=== PATIENT | female | born 1990 | race Two or more races ===

== ENCOUNTER 2023-09-29 16:35 | Inpatient (IN) | payer OTHER, SELFPAY ==
--- NOTE | ~2023-09-29 | CT_ITS ---
EXAMINATION: CT abdomen pelvis w con DATE: 09/29/2023 19:29 INDICATION: epigastric pain TECHNIQUE: Computed tomography (CT) of the abdomen and pelvis was performed with 100 mL Omnipaque-350 intravenous contrast. Automated exposure control and iterative reconstruction technique were employe d. The dose-length product was 273.81 mGy-cm. COMPARISON: None. FINDINGS: Lower thorax: Unremarkable Liver: Simple right lobe cyst. Subcentimeter left lobe hypodensity, likely cyst or hemangioma. Biliary/Gallbladder: Gallbladder is normal. No bile duct dilation. Pancreas: No mass or duct dilation. Spleen: Normal. Adrenals:No mass. Kidneys: Mild bilateral upper pole scarring. Subcentimeter left upper pole hypodensity, likely cyst. 12 mm right lower pole lesion of indeterminate density, with surrounding renal parenchymal hypoenhanc ement. No hydronephrosis. No obstructing calcification. GI tract: Mild distal esophageal and gastric wall edema. No small or large bowel dilation. The append ix is not confidently visualized Mesentery/Peritoneum: No ascites, mass, or free air. Retroperitoneum: No mass. Pelvis: Pelvic organs are within normal limits. 2.1 cm simple left ovarian cyst which requires no add itional evaluation. Soft Tissues: Soft tissues and body wall unremarkable. Bones: No acute osseous finding. IMPRESSION: Mild esophagitis/gastritis. 12 mm right lower pole renal lesion with surrounding hypoenhancement may reflect small/early renal ab scess or renal antibioma if there is a history of current or recent antibiotic treatment for pyonephr itis. Reviewed, dictated and finalized at location K. CTOR OF RESPIRATORY THERAPY IMPRESSION: Mild esophagitis/gastritis. 12 mm right lower pole renal lesion with surrounding hypoenhancement may reflec t small/early renal abscess or renal antibioma if there is a history of current or recent antibiotic treatment for pyonephritis.
--- NOTE | ~2023-09-29 | XR_ITS ---
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 RESULT: Lines, tubes, and devices: None. Lungs and pleura: Clear. Cardiomediastinal silhouette: Unremarkable. Other: No acute osseous or upper abdominal finding. IMPRESSION: No acute cardiopulmonary process. Reviewed, dictated and finalized at location K. KMAKER
--- NOTE | ~2023-09-29 | US_ITS ---
EXAMINATION: US renal BI DATE: 09/30/2023 16:50 INDICATION: Renal abscess. TECHNIQUE: Multiple ultrasound grayscale images of the kidneys were obtained. COMPARISON: CT abdomen pelvis 09/29/23 FINDINGS: The right kidney measures 10.0 x 5.1 x 5.3 cm. The left kidney measures 11.3 x 5.3 x 4.4 cm. The kidn eys demonstrate normal parenchymal echogenicity. There is no hydronephrosis. The bladder is normal. IMPRESSION: 1. Normal kidneys. No abscess identified. Reviewed, dictated and finalized at location A. SPROUT LABORER
[2023-09-29 16:54] VITALS: BP 122/86; PULSE 167; RESP 24; TEMP 38.6; O2SAT 99
--- NOTE | 2023-09-29 17:15 | ECG_ITS ---
Measurements Intervals [place] Rate: 158 P: 59 MO: 105 QRS: 80 QRSD: 65 T: 38 QT: 291 QTc: 473 Interpretive Statements SINUS TACHYCARDIA WITH SHORT MO INTERVAL NONSPECIFIC T-WAVE ABNORMALITY- ANTEROLAT/INF LEADS ABNORMAL ECG NO PREVIOUS ECG AVAILABLE FOR COMPARISON Electronically Signed On 09-29-2023 19:27:53 WARE TESTER by Néstor Barnard D.O.
--- NOTE | 2023-09-29 17:49 | ED.GENADULT ---
HPI - General Adult General Chief complaint: Nausea/Vomiting/Diarrhea <DIMITRI Aguero Last Filed: 09/30/23 03:36> Stated complaint: nausea <DIMITRI Aguero Last Filed: 09/30/23 03:36> Time Seen by Provider: 09/29/23 17:16 <DIMITRI Aguero Last Filed: 09/30/23 03:36> Source: patient and other ( Friend, development planner) <DIMITRI Aguero Last Filed: 09/30/23 03:36> Mode of arrival: ambulatory <DIMITRI Aguero Last Filed: 09/30/23 03:36> Limitations: language barrier <DIMITRI Aguero Last Filed: 09/30/23 03:36> History of Present Illness HPI narrative: this is a 33-year-old female who presents to the ED for chief complaint of N/ V/ D beginning yesterday. Reports that she has some generalized abdominal pain, seems to be more focal in the epigastrium. Reports multiple episodes of vomiting and diarrhea today. Reports fevers and chills. she also reports that as the vomiting and diarrhea got worse today she started to feel more dizzy. Reports this has happened in the past but has not been this severe. Denies cough, congestion, Sore throat, urinary symptoms, vaginal symptoms, headache, numbness, weakness, vision change or speech change. <DIMITRI Aguero Last Filed: 09/30/23 03:36> Related Data Home medications: Home Medications Medication Instructions Recorded Confirmed naproxen 250 mg tablet 750 mg PO BID PRN Pain 09/30/23 09/30/23 <DIMITRI Aguero Last Filed: 09/30/23 03:36> Allergies/adverse reactions: Allergies Allergy/AdvReac Type Severity Reaction Status Date / Time No Known Allergies Allergy Verified 09/29/23 18:05 <DIMITRI Aguero Last Filed: 09/30/23 03:36> Review of Systems Review of Systems: All systems as dictated in HPI <DIMITRI Aguero Last Filed: 09/30/23 03:36> [facility] Social History Social History: Social History Smoking status: Never smoker Second hand tobacco smoke exposure: No Alcohol intake: never Substance use: never Substance use type: does not use Do You Feel Safe in your Home?: No Lack of Transportation: No Lack of Food: Never True Current Housing: I Have Housing Concerned About Future Housing: No Difficulty Paying Gas/Electric Bills: No Difficulty Paying for Meds: No Currently Unemployed: No Education: Bachelor's Degree Difficulty w/ Childcare or Family Care: No Spiritual care concerns: No <Tuan Comer PA-C - Last Filed: 09/30/23 03:36> Exam Narrative: GENERAL: Appears dry on exam. resting comfortably HEAD: Normocephalic, atraumatic. EYES: PERRLA and EOMI. ENT: Nares clear, no rhinorrhea or epistaxis. Mucous membranes moist. Oropharynx without tonsillar hypertrophy exudate or other lesions. NECK: Supple. No adenopathy or masses. CHEST: No respiratory distress. Clear to auscultation. No wheezes rales or rhonchi HEART: tachycardic in the 130s. Regular rhythm.. No murmur heard. Normal peripheral pulses. ABDOMEN: Mild tenderness to the epigastrium. Soft, otherwise nontender, nondistended, normal active bowel sounds. MSK: Normal range of motion. No edema. SKIN: Warm, dry, no rash. NEURO: Alert and oriented x3. No focal deficits. PSYCH: Normal mood and affect. <Tuan Comer PA-C - Last Filed: 09/30/23 03:36> Course Course Emergency Course: CT scan showing possible early renal abscess on the right. She does not have any flank tenderness. Remains slightly tachycardic and febrile on fluids. <Tuan Comer PA-C - Last Filed: 09/30/23 03:36> SCALEMAN/PA Physician Supervision For this patient encounter, I reviewed the SCALEMAN or PA documentation, treatment plan, and medical decision making and/or I had [id number] time with this patient. I performed all aspects of the MDM as documented. <Elizabeth Srivastava MD - Last Filed: 10/04/23 02:00> Vital Signs Vital signs: Vital Signs Temperature
[2023-09-29 17:54] LABS: Basophils Percent Auto 0.2 % (0.2-1.2); Eosinophils Absolute Auto 0.1 K/mm3 (0-0.3); Hematocrit 36.9 % (37.0-47.0); Hemoglobin 12.1 g/dL (12.0-15.0); Immature Granulocyte Absolute 0.02 K/mm3 (0.00-0.031); Immature Granulocyte Percent A 0.4 % (0-0.5); Lymphocytes Absolute Auto 0.25 K/mm3 (0.9-3.2); Mean Corpuscular HGB Conc 32.8 g/dl (32-36); Mean Corpuscular Hemoglobin 30.4 pg (26-34); Mean Corpuscular Volume 92.7 fl (80-100); Mean Platelet Volume 9.9 fl (7.4-10.4); Monocytes Absolute Auto 0.1 K/mm3 (0.1-0.6); Neutrophils Absolute Auto 4.6 K/mm3 (1.3-6.7); Neutrophils Percent Auto 91.4 % (45.5-73.1); Platelet Count Result 215 k/mm3 (150-375); Red Blood Count 3.98 M/mm3 (4.2-5.4); Red Cell Distribution Width 13.3 % (11.5-14.5)
[2023-09-29] MEDS: Please add drug allergy info to patient profile. 1 EACH XX (18:07)
[2023-09-29] MEDS: ONDANSETRON INJ 4 MG/2 ML VIAL IV PUSH (18:07)
[2023-09-29] MEDS: SODIUM CHLORIDE 0.9% IV 1,000 ML 999 ML IV CONT ×2 (18:07→20:02)
[2023-09-29] MEDS: MORPHINE SULFATE (*CRX) 4 MG/ML INJ IV PUSH (18:07)
[2023-09-29 18:18] LABS: Alanine Aminotransferase 17 U/L (6-35); Albumin Level 4.2 g/dL (3.5-5.1); Alkaline Phosphatase 110 U/L (38-126); Anion Gap 10 mmol/L (8-16); Aspartate Amino Transferase 25 U/L (14-36); Bilirubin,Total 1.3 mg/dL (0.2-1.3); Blood Urea Nitrogen 21 mg/dL (7-17); Calcium 9.2 mg/dL (8.4-10.2); Carbon Dioxide 19 mmol/L (22-30); Chloride 111 mmol/L (98-107); Estimated CRCL calculation 81 ml/min; Estimated Glomerular Filt Rate > 60; Glucose 105 mg/dL (65-110); Sodium 140 mmol/L (137-145)
[2023-09-29 18:26] LABS: Lipase 68 U/L (23-300)
[2023-09-29 18:30] LABS: Influenza A QL RT-PCR Negative (Negative); Influenza B QL RT-PCR Negative (Negative); RSV RNA, RT-PCR Negative (Negative); SARS-CoV-2 RNA PCR Negative (Negative)
[2023-09-29 18:32] LABS: CRP 14.4 mg/dL (<1.0)
[2023-09-29 18:39] VITALS: BP 110/71; PULSE 120; RESP 16; O2SAT 99
[2023-09-29] MEDS: diphenhydrAMINE HCl INJ 50 MG/ML VIAL 25 MG IV PUSH (18:45)
[2023-09-29 19:07] LABS: Appearance Urine Clear (Clear); Bacteria Urine Rare /hpf; Bilirubin Urine Negative (Negative); Blood Urine 3+ (Negative); Color Urine Yellow (Yellow); Glucose Urine UA Negative (Negative); Ketones Urine 2+ mg/dL (Negative); Leukocyte Esterase Ur 1+ LEU/UL (Negative); Need Manual Microscopic Reviewed; Nitrate Urine Negative (Negative); Non Pathogenic Casts 0-2; Protein Urine 2+ mg/dL (Negative); RBC Urine 0-2 /hpf (0-2); Specific Grav Ur 1.022 (1.001-1.035); Squamous Epithelial Cell Urine Few /hpf (Few); WBC Urine 0-5 /hpf
[2023-09-29 19:29] VITALS: BP 114/76; PULSE 117; RESP 13; O2SAT 100
[2023-09-29] MEDS: KETOROLAC 15 MG/ML VIAL (*BKC) IV PUSH (20:02)
[2023-09-29 20:05] LABS: Add Urine Microscopic? YES
--- NOTE | 2023-09-29 20:32 | PC.NURSE ---
Pt able to ambulate with steady gait to restroom.
[2023-09-29 20:40] VITALS: BP 112/76; PULSE 106; RESP 15; TEMP 37.5; O2SAT 99
--- NOTE | 2023-09-29 21:21 | PM.IMHP ---
H&P: HPI History of Present Illness Date/Time: 09/29/23 21:21 Chief Complaint: chills Narrative: 33-year-old female with no significant past medical history presents to the emergency room due to 3-4 days of chills, fevers, nausea, vomiting poor appetite EXAMINATION:? XR chest 1V portable Exam Date/Time:? 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 Comparison:? None. RESULT: Lines, tubes, and devices:? None. Lungs and pleura:? Clear. Cardiomediastinal silhouette:? Unremarkable. Other:? No acute osseous or upper abdominal finding. ? IMPRESSION: No acute cardiopulmonary process. EXAMINATION: CT abdomen pelvis w con DATE: 09/29/2023 19:29 INDICATION: epigastric pain TECHNIQUE: Computed tomography (CT) of the abdomen and pelvis was performed with 100 mL Omnipaque-350 intravenous contrast. Automated exposure control and iterative reconstruction technique were employed. The dose-length product was 273.81 mGy-cm. COMPARISON: None. FINDINGS: Lower thorax: Unremarkable Liver: Simple right lobe cyst. Subcentimeter left lobe hypodensity, likely cyst or hemangioma.? Biliary/Gallbladder: Gallbladder is normal. No bile duct dilation. Pancreas: No mass or duct dilation. Spleen: Normal. Adrenals:No mass. Kidneys: Mild bilateral upper pole scarring. Subcentimeter left upper pole hypodensity, likely cyst. 12 mm right lower pole lesion of indeterminate density, with surrounding renal parenchymal hypoenhancement. No hydronephrosis. No obstructing calcification. GI tract: Mild distal esophageal and gastric wall edema. No small or large bowel dilation. The appendix is not confidently visualized Mesentery/Peritoneum: No ascites, mass, or free air. Retroperitoneum: No mass. Pelvis: Pelvic organs are within normal limits. 2.1 cm simple left ovarian cyst which requires no additional evaluation. Soft Tissues: Soft tissues and body wall unremarkable. Bones:? No acute osseous finding. IMPRESSION: Mild esophagitis/gastritis. 12 mm right lower pole renal lesion with surrounding hypoenhancement may reflect small/early renal abscess or renal antibioma if there is a history of current or recent antibiotic treatment for pyonephritis. Review of Systems Review of Systems: chills, n/v Constitutional: Constitutional: Reports chills, Reports fever(s) and Reports poor appetite PMFSH Social History Social History Smoking status: Never smoker Second hand tobacco smoke exposure: No Alcohol intake: never Substance use: never Substance use type: does not use Do You Feel Safe in your Home?: No Lack of Transportation: No Lack of Food: Never True Current Housing: I Have Housing Concerned About Future Housing: No Difficulty Paying Gas/Electric Bills: No Difficulty Paying for Meds: No Currently Unemployed: No Education: Bachelor's Degree Difficulty w/ Childcare or Family Care: No Spiritual care concerns: No Meds Home Medications and Allergies Home Medications Medication Instructions Recorded Confirmed Type naproxen 250 mg tablet 750 mg PO BID PRN Pain 09/30/23 09/30/23 History Allergies Allergy/AdvReac Type Severity Reaction Status Date / Time No Known Allergies Allergy Verified 09/29/23 18:05 Vital Signs Vital Signs - 24 hr 09/29/23 16:54 09/29/23 18:39 09/29/23 19:29 Temperature 101.4 F H Pulse Rate 167 H 120 H 117 H Respiratory Rate 24 H 16 13 Blood Pressure 122/86 110/71 114/76 Pulse Oximetry 99 99 100 Oxygen Delivery Room Air 09/29/23 20:40 09/29/23 20:40 Temperature 99.5 F Pulse Rate 106 H Respiratory Rate 15 Blood Pressure 112/76 Pulse Oximetry 99 Oxygen Delivery Exam Const: General: comfortable, no acute distress, well developed, alert, awake and average body habitus Nutritional Appearance: average body habitus Orientation/consciousness: patient oriented x3 HENMT: Head: normal to inspection, normocephalic and atraumatic Ears: heari
[2023-09-29 21:55] VITALS: BP 109/77; PULSE 101; RESP 14; O2SAT 99
[2023-09-29] MEDS: SODIUM CHLORIDE 0.9% IV 1,000 ML 125 ML IV CONT (23:32)
[2023-09-29] MEDS: MEROPENEM 1 GM/NS 100 ML 1 GM/100 ML BAG IVPB (23:32)
[2023-09-29 23:33] VITALS: BP 104/74; PULSE 103; RESP 14; O2SAT 100
[2023-09-30] VITALS (9 sets, daily range): BP systolic 100–123; BP diastolic 58–88; PULSE 80–96; RESP 14–20; TEMP 36.5–37.3; O2SAT 98–100; BMI 24.4
--- NOTE | 2023-09-30 00:40 | ADMGEN ---
This patient, Danielle Batres, was admitted to [facility] Surg Room 302-01. Patient/family oriented to hospital policies and general routines including ID bracelet, bed and alarms, visiting hours, pain management, procedures, bathroom and other care routines, personal items, smoking policy, room service/diet, and visiting hours. Information on how to activate the Rapid Response Team has been discussed. Patient/Family are encouraged to report perceived risks to care and to ask questions if they do not understand what they are told or what they should do.
[2023-09-30] MEDS: MEROPENEM 1 GM/NS 100 ML 1 GM/100 ML BAG IVPB ×2 (05:28→14:52)
[2023-09-30] MEDS: SODIUM CHLORIDE 0.9% IV 1,000 ML 125 ML IV CONT ×2 (08:50→20:22)
[2023-09-30] MEDS: MORPHINE SULFATE (*CRX) 4 MG/ML INJ IV PUSH (08:50)
--- NOTE | 2023-09-30 10:56 | PM.IMPN ---
Progress Note: A&P Assessment and Plan (1) Kidney abscess: Code(s): N15.1 - Renal and perinephric abscess Status: Acute Assessment and Plan: US of kidney ordered. Continue to provide IV Abx of Meropenem pending results of blood and urine cultures. Trend labs and VS. PRN pain meds No longer meeting Sepsis/SIRS criteria. Time Spent With Patient Time with patient: 25 - 35 minutes Subjective Date/time seen: 09/30/23 10:05 Interval history: This pt was examined at the bedside with the help of a senior financial consultant after being admitted to the hospital with dx of sepsis and abscess on right kidney. Blood cultures are currently pending. Urine culture is ordered but not yet collected. Pt has had interval improvement in her pain and reports feeling better today with exception of continued headache. She has no other complaints at this time. Review of Systems Review of Systems: All systems reviewed & are unremarkable except as noted in HPI and below Exam Narrative: Constitutional: Alert and oriented x4, female pt sitting up in bed at this time in no acute distress. HEENT: Normocephalic and atraumatic. Eyes: PERRLA Neck: Supple with FROM actively in all directions. Respiratory: CTAB in all beard. Cardio:RRR, S1 and S2 present. No S3, S4, m,r,g,h or displacement of PMI. GI: Soft, NT, BS present x4 quads, There is mild right CVA tenderness Skin: CLear, without lesion, rash or abnormality. Good turgor. Neuro: A&Ox4, Non-focal Extremity: MAEW and fully without deficit. Psych: Normal affect and cooperative. Objective Data Vital Signs Vital Signs: Vital Signs - 24 hr 09/29/23 16:54 09/29/23 18:39 09/29/23 19:29 Temperature 101.4 F H Pulse Rate 167 H 120 H 117 H Respiratory Rate 24 H 16 13 Blood Pressure 122/86 110/71 114/76 Pulse Oximetry 99 99 100 Oxygen Delivery Room Air 09/29/23 20:40 09/29/23 20:40 09/29/23 21:55 Temperature 99.5 F Pulse Rate 106 H 101 H Respiratory Rate 15 14 Blood Pressure 112/76 109/77 Pulse Oximetry 99 99 Oxygen Delivery 09/29/23 23:33 09/30/23 00:12 09/30/23 06:00 Temperature 99.1 F Pulse Rate 103 H 94 96 Respiratory Rate 14 15 14 Blood Pressure 104/74 101/69 106/70 Pulse Oximetry 100 98 99 Oxygen Delivery 09/30/23 04:00 Temperature Pulse Rate 85 Respiratory Rate Blood Pressure Pulse Oximetry Oxygen Delivery Intake/Output Intake/Output: Intake & Output 09/27/23 09/28/23 09/29/23 09/30/23 23:59 23:59 23:59 23:59 Intake Total 2049 1069 Balance 2049 107 Meds/Results Medications: Active Medications Generic Name Dose Route Start Last Admin Trade Name Freq PRN Reason Stop Dose Admin Acetaminophen 1,000 mg 09/30/23 09:40 Acetaminophen 500 Mg Tablet PO Q6H PRN Mild Pain (1-3) or Fever Sodium Chloride 1,000 mls @ 125 mls/hr 09/29/23 21:35 09/30/23 08:50 Normal Saline Iv IV CONT 125 mls/hr .Q8H JESSICA Administration Meropenem 1 gm in 100 mls @ 200 mls/hr 09/29/23 22:00 09/30/23 05:28 IVPB 200 mls/hr Q8HR JESSICA Administration Morphine Sulfate 4 mg 09/29/23 21:27 09/30/23 08:50 Morphine Sulfate (*Crx) 4 Mg/Ml Inj IV PUSH 4 mg Q4H PRN Administration Pain Rated 7-10 Ondansetron HCl 4 mg 09/29/23 21:27 Ondansetron Inj 4 Mg/2 Ml Vial IV PUSH Q4H PRN Nausea Radiology Results: ITS Impressions Chest X-Ray 09/29/23 19:10 IMPRESSION: No acute cardiopulmonary process. Abdomen/Pelvis CT 09/29/23 19:46 IMPRESSION: Mild esophagitis/gastritis. 12 mm right lower pole renal lesion with surrounding hypoenhancement may reflect small/early renal abscess or renal antibioma if there is a history of current or recent antibiotic treatment for pyonephritis. Labs Labs: Laboratory Results - last 24 hr 09/29/23 09/29/23 09/29/23 17:36 18:08 18:47 WBC 5.0 RBC 3.98 L Hgb 12.1 Hct 36.9 L MCV 92.7 MCH 30.4
[2023-09-30] MEDS: metroNIDAZOLE 500 MG TABLET PO (20:22)
[2023-09-30] MEDS: cefTRIAXone 2 GM/NS 100 ML 2 GM/100 ML BAG IVPB (20:23)
[2023-10-01] VITALS (9 sets, daily range): BP systolic 108–126; BP diastolic 73–79; PULSE 72–86; RESP 16–18; TEMP 36.6–36.8; O2SAT 100
[2023-10-01] MEDS: SODIUM CHLORIDE 0.9% IV 1,000 ML 125 ML IV CONT ×3 (05:50→20:55)
[2023-10-01] MEDS: metroNIDAZOLE 500 MG TABLET PO ×3 (05:50→20:56)
--- NOTE | 2023-10-01 08:04 | PC.NURSE ---
On 09/30/23, the SECOND HAND PAPER MACHINE, Jennifer Marsh, provided care and completed [facility] documentation on this patient. I have reviewed the SECOND HAND PAPER MACHINE's documentation and agree with the findings.
[2023-10-01] MEDS: ACETAMINOPHEN 500 MG TABLET 1000 MG PO ×2 (09:30→15:03)
[2023-10-01] MEDS: ONDANSETRON INJ 4 MG/2 ML VIAL IV PUSH (09:30)
[2023-10-01 09:31] LABS: Anion Gap 6 mmol/L (8-16); Blood Urea Nitrogen 5 mg/dL (7-17); Calcium 8.7 mg/dL (8.4-10.2); Carbon Dioxide 22 mmol/L (22-30); Chloride 110 mmol/L (98-107); Estimated CRCL calculation 97 ml/min; Estimated Glomerular Filt Rate > 60; Glucose 92 mg/dL (65-110); Sodium 138 mmol/L (137-145)
[2023-10-01 09:52] LABS: Basophils Percent Auto 0.4 % (0.2-1.2); Eosinophils Absolute Auto 0.2 K/mm3 (0-0.3); Eosinophils Percent Auto 4.4 % (0-4.4); Hematocrit 35.9 % (37.0-47.0); Hemoglobin 11.8 g/dL (12.0-15.0); Immature Granulocyte Absolute 0.01 K/mm3 (0.00-0.031); Immature Granulocyte Percent A 0.2 % (0-0.5); Lymphocytes Absolute Auto 0.98 K/mm3 (0.9-3.2); Lymphocytes Percent Auto 19.8 % (18.3-44.2); Mean Corpuscular HGB Conc 32.9 g/dl (32-36); Mean Corpuscular Hemoglobin 30.5 pg (26-34); Mean Corpuscular Volume 92.8 fl (80-100); Monocytes Absolute Auto 0.5 K/mm3 (0.1-0.6); Monocytes Percent Auto 9.5 % (2.6-8.5); Neutrophils Absolute Auto 3.3 K/mm3 (1.3-6.7); Neutrophils Percent Auto 65.7 % (45.5-73.1); Platelet Count Result 231 k/mm3 (150-375); Red Blood Count 3.87 M/mm3 (4.2-5.4); Red Cell Distribution Width 13.2 % (11.5-14.5)
[2023-10-01] MEDS: LOPERAMIDE HCL 2 MG CAPSULE PO ×2 (14:24→20:56)
--- NOTE | 2023-10-01 14:26 | PM.IMPN ---
Progress Note: A&P Assessment and Plan (1) Kidney abscess: Code(s): N15.1 - Renal and perinephric abscess Status: Acute Assessment and Plan: US of kidney normal kidneys. No abscess identified. Continue Rocephin and Flagyl urine cultures pending BC showing gram negative bacilli in prelim growth Trend labs and VS. PRN pain meds PRN immodium Subjective Date/time seen: 10/01/23 14:26 Interval history: Patient in no acute distress on exam, denies CVA tenderness. Only complaint is diarrhea from the IV AB. Discussed plan of care with puncher assistance. Will plan for d/c when UA results and BC finalizes for AB therapy. Renal US showed no kidney abscess. Review of Systems Review of Systems: All systems reviewed & are unremarkable except as noted in HPI and below Exam Narrative: Constitutional: Alert and oriented x4, female pt sitting up in bed at this time in no acute distress. HEENT: Normocephalic and atraumatic. Eyes: PERRLA, EOMI Neck: Supple Respiratory: Lungs clear to ausculation Cardio: RRR GI: Soft, non-tender to palpation, BS present. Denies CVA tenderness Skin: Clear, without lesion, rash or abnormality. Neuro: A&Ox4, no deficits. Extremity: ROM WNL, no edema. Psych: Normal affect and cooperative. Objective Data Vital Signs Vital Signs: Vital Signs - 24 hr 09/30/23 16:00 09/30/23 21:16 09/30/23 20:00 Temperature 97.9 F Pulse Rate 90 88 80 Respiratory Rate 18 16 Blood Pressure 123/88 Pulse Oximetry 100 98 Oxygen Delivery Room Air 09/30/23 20:00 10/01/23 00:00 10/01/23 04:00 Temperature Pulse Rate 86 86 78 Respiratory Rate Blood Pressure Pulse Oximetry Oxygen Delivery 10/01/23 06:00 10/01/23 09:00 Temperature 98.1 F Pulse Rate 83 Respiratory Rate 16 Blood Pressure 126/79 Pulse Oximetry 100 Oxygen Delivery Room Air Intake/Output Intake/Output: Intake & Output 09/28/23 09/29/23 09/30/23 10/01/23 23:59 23:59 23:59 23:59 Intake Total 2049 3060 1240 Balance 2049 3060 1240 Meds/Results Medications: Active Medications Generic Name Dose Route Start Last Admin Trade Name Freq PRN Reason Stop Dose Admin Acetaminophen 1,000 mg 09/30/23 09:40 Acetaminophen 500 Mg Tablet PO Q6H PRN Mild Pain (1-3) or Fever Sodium Chloride 1,000 mls @ 125 mls/hr 09/29/23 21:35 10/01/23 05:50 Normal Saline Iv IV CONT 125 mls/hr .Q8H JESSICA Administration Ceftriaxone Sodium 2 gm in 100 mls @ 200 mls/hr 09/30/23 21:00 09/30/23 20:23 Rocephin 2 Gm/Ns 100 Ml IVPB 200 mls/hr Q24H JESSICA Administration Loperamide HCl 2 mg 10/01/23 14:06 10/01/23 14:24 Loperamide Hcl 2 Mg Capsule PO 2 mg PRN PRN Administration Diarrhea Metronidazole 500 mg 09/30/23 22:00 10/01/23 14:24 Metronidazole 500 Mg Tablet PO 500 mg Q8HR JESSICA Administration Morphine Sulfate 4 mg 09/29/23 21:27 09/30/23 08:50 Morphine Sulfate (*Crx) 4 Mg/Ml Inj IV PUSH 4 mg Q4H PRN Administration Pain Rated 7-10 Ondansetron HCl 4 mg 09/29/23 21:27 Ondansetron Inj 4 Mg/2 Ml Vial IV PUSH Q4H PRN Nausea Radiology Results: ITS Impressions Chest X-Ray 09/29/23 19:10 IMPRESSION: No acute cardiopulmonary process. Abdomen/Pelvis CT 09/29/23 19:46 IMPRESSION: Mild esophagitis/gastritis. 12 mm right lower pole renal lesion with surrounding hypoenhancement may reflect small/early renal abscess or renal antibioma if there is a history of current or recent antibiotic treatment for pyonephritis. Renal Ultrasound 09/30/23 17:00 IMPRESSION: 1. Normal kidneys. No abscess identified. Labs Labs: Laboratory Results - last 24 hr 10/01/23 08:39 WBC 5.0 RBC 3.87 L Hgb 11.8 L Hct 35.9 L MCV 92.8 MCH 30.5 MCHC 32.9 RDW 13.2 Plt Count 231 MPV 10.0 Immature Gran % (Auto) 0.2 Neut % (Auto) 65.7 Lymph % (Auto) 19.8 Coffee % (Auto)
--- NOTE | 2023-10-01 19:21 | PC.NURSE ---
On 10/01/23, the TIE KNITTER HELPER, Jennifer Marsh, provided care and completed [email or web address] documentation on this patient. I have reviewed the TIE KNITTER HELPER's documentation and agree with the findings.
[2023-10-01] MEDS: cefTRIAXone 2 GM/NS 100 ML 2 GM/100 ML BAG IVPB (20:55)
[2023-10-02] VITALS (9 sets, daily range): BP systolic 112–126; BP diastolic 81–92; PULSE 69–93; RESP 16–18; TEMP 36.6–36.7; O2SAT 100
[2023-10-02] MEDS: metroNIDAZOLE 500 MG TABLET PO ×3 (05:23→20:35)
[2023-10-02] MEDS: LOPERAMIDE HCL 2 MG CAPSULE PO ×3 (05:23→20:35)
[2023-10-02 07:16] LABS: Basophils Percent Auto 0.5 % (0.2-1.2); Eosinophils Absolute Auto 0.3 K/mm3 (0-0.3); Eosinophils Percent Auto 5.3 % (0-4.4); Hematocrit 35.5 % (37.0-47.0); Hemoglobin 11.7 g/dL (12.0-15.0); Immature Granulocyte Absolute 0.02 K/mm3 (0.00-0.031); Immature Granulocyte Percent A 0.3 % (0-0.5); Lymphocytes Absolute Auto 1.52 K/mm3 (0.9-3.2); Lymphocytes Percent Auto 25.8 % (18.3-44.2); Mean Corpuscular Hemoglobin 30.6 pg (26-34); Mean Corpuscular Volume 92.9 fl (80-100); Monocytes Absolute Auto 0.5 K/mm3 (0.1-0.6); Monocytes Percent Auto 8.5 % (2.6-8.5); Neutrophils Absolute Auto 3.5 K/mm3 (1.3-6.7); Neutrophils Percent Auto 59.6 % (45.5-73.1); Platelet Count Result 247 k/mm3 (150-375); Red Blood Count 3.82 M/mm3 (4.2-5.4); Red Cell Distribution Width 13.2 % (11.5-14.5); White Blood Count 5.9 K/mm3 (4.5-10.0)
[2023-10-02 07:36] LABS: Anion Gap 9 mmol/L (8-16); Blood Urea Nitrogen 7 mg/dL (7-17); Calcium 8.7 mg/dL (8.4-10.2); Carbon Dioxide 21 mmol/L (22-30); Chloride 109 mmol/L (98-107); Estimated CRCL calculation 84 ml/min; Estimated Glomerular Filt Rate > 60; Glucose 111 mg/dL (65-110); Potassium 3.8 mmol/L (3.4-5.0); Sodium 139 mmol/L (137-145)
[2023-10-02] MEDS: SODIUM CHLORIDE 0.9% IV 1,000 ML 125 ML IV CONT (09:41)
--- NOTE | 2023-10-02 15:41 | PM.IMPN ---
Progress Note: A&P Assessment and Plan (1) Kidney abscess: Code(s): N15.1 - Renal and perinephric abscess Status: Acute Assessment and Plan: US of kidney normal kidneys. No abscess identified. Continue Rocephin and Flagyl urine cultures pending BC showing gram negative bacilli in prelim growth and E. coli. Trend labs and VS. PRN pain meds PRN immodium Subjective Date/time seen: 10/02/23 15:41 Interval history: Patient in no acute distress on exam, denies CVA tenderness. Diarrhea has improved, she is eating an drinking well. D/C fluids and tele. Discussed plan of care with bariatric surgeon assistance. Will plan for d/c when UA results and BC finalizes for AB therapy. Review of Systems Review of Systems: All systems reviewed & are unremarkable except as noted in HPI and below Exam Narrative: Constitutional: Alert and oriented x4, female pt sitting up in bed at this time in no acute distress. HEENT: Normocephalic and atraumatic. Eyes: PERRLA, EOMI Neck: Supple Respiratory: Lungs clear to ausculation Cardio: RRR GI: Soft, non-tender to palpation, BS present. Denies CVA tenderness Skin: Clear, without lesion, rash or abnormality. Neuro: A&Ox4, no deficits. Extremity: ROM WNL, no edema. Psych: Normal affect and cooperative. Objective Data Vital Signs Vital Signs: Vital Signs - 24 hr 10/01/23 16:00 10/01/23 21:51 10/01/23 20:00 Temperature 98.2 F Pulse Rate 76 84 84 Respiratory Rate 16 16 Blood Pressure 108/79 Pulse Oximetry 100 100 Oxygen Delivery Room Air 10/01/23 20:00 10/02/23 00:00 10/02/23 04:00 Temperature Pulse Rate 76 69 76 Respiratory Rate Blood Pressure Pulse Oximetry Oxygen Delivery 10/02/23 06:00 10/02/23 08:00 10/02/23 12:00 Temperature 97.9 F Pulse Rate 88 80 84 Respiratory Rate 16 Blood Pressure 126/92 H Pulse Oximetry 100 Oxygen Delivery Intake/Output Intake/Output: Intake & Output 09/29/23 09/30/23 10/01/23 10/02/23 23:59 23:59 23:59 23:59 Intake Total 2049 3160 3804 1100 Balance 2050 3160 3804 1100 Meds/Results Medications: Active Medications Generic Name Dose Route Start Last Admin Trade Name Freq PRN Reason Stop Dose Admin Acetaminophen 1,000 mg 09/30/23 09:40 10/01/23 15:03 Acetaminophen 500 Mg Tablet PO 1,000 mg Q6H PRN Administration Mild Pain (1-3) or Fever Sodium Chloride 1,000 mls @ 125 mls/hr 09/29/23 21:35 10/02/23 09:41 Normal Saline Iv IV CONT 125 mls/hr .Q8H JESSICA Administration Ceftriaxone Sodium 2 gm in 100 mls @ 200 mls/hr 09/30/23 21:00 10/01/23 20:55 Rocephin 2 Gm/Ns 100 Ml IVPB 200 mls/hr Q24H JESSICA Administration Loperamide HCl 2 mg 10/01/23 14:06 10/02/23 13:45 Loperamide Hcl 2 Mg Capsule PO 2 mg PRN PRN Administration Diarrhea Metronidazole 500 mg 09/30/23 22:00 10/02/23 13:45 Metronidazole 500 Mg Tablet PO 500 mg Q8HR JESSICA Administration Morphine Sulfate 4 mg 09/29/23 21:27 09/30/23 08:50 Morphine Sulfate (*Crx) 4 Mg/Ml Inj IV PUSH 4 mg Q4H PRN Administration Pain Rated 7-10 Ondansetron HCl 4 mg 09/29/23 21:27 10/01/23 09:30 Ondansetron Inj 4 Mg/2 Ml Vial IV PUSH 4 mg Q4H PRN Administration Nausea Radiology Results: ITS Impressions Chest X-Ray 09/29/23 19:10 IMPRESSION: No acute cardiopulmonary process. Abdomen/Pelvis CT 09/29/23 19:46 IMPRESSION: Mild esophagitis/gastritis. 12 mm right lower pole renal lesion with surrounding hypoenhancement may reflect small/early renal abscess or renal antibioma if there is a history of current or recent antibiotic treatment for pyonephritis. Renal Ultrasound 09/30/23 17:00 IMPRESSION: 1. Normal kidneys. No abscess identified. Labs Labs: Laboratory Results - last 24 hr 10/02/23 06:06 WBC 5.9 RBC 3.82 L Hgb 11.7 L Hct 35.5 L MCV 92.9 MCH 30.6 MCHC 33.0 RDW 13.2
[2023-10-02] MEDS: cefTRIAXone 2 GM/NS 100 ML 2 GM/100 ML BAG IVPB (20:36)
[2023-10-03] VITALS: PULSE 95
[2023-10-03 04:00] VITALS: PULSE 82
[2023-10-03] MEDS: metroNIDAZOLE 500 MG TABLET PO (05:48)
[2023-10-03] MEDS: LOPERAMIDE HCL 2 MG CAPSULE PO (05:48)
[2023-10-03 06:00] VITALS: BP 109/78; PULSE 82; RESP 14; TEMP 36.6; O2SAT 100
[2023-10-03 08:00] VITALS: PULSE 82
[2023-10-03 10:51] LABS: Hematocrit 37.3 % (37.0-47.0); Hemoglobin 12.4 g/dL (12.0-15.0); Mean Corpuscular HGB Conc 33.2 g/dl (32-36); Mean Corpuscular Hemoglobin 30.2 pg (26-34); Mean Platelet Volume 10.1 fl (7.4-10.4); Platelet Count Result 279 k/mm3 (150-375); Red Cell Distribution Width 13.2 % (11.5-14.5); White Blood Count 6.2 K/mm3 (4.5-10.0)
[2023-10-03 10:58] LABS: Anion Gap 10 mmol/L (8-16); Blood Urea Nitrogen 8 mg/dL (7-17); Calcium 9.3 mg/dL (8.4-10.2); Carbon Dioxide 22 mmol/L (22-30); Chloride 108 mmol/L (98-107); Estimated CRCL calculation 84 ml/min; Estimated Glomerular Filt Rate > 60; Glucose 98 mg/dL (65-110); Potassium 3.9 mmol/L (3.4-5.0); Sodium 140 mmol/L (137-145)
--- NOTE | 2023-10-03 11:03 | PC.NURSE ---
patient d/c home self care. taking home in private car. IV out. all belongings with patient. [employer] was used in d/c instructions. denies any questions.
--- NOTE | 2023-10-03 11:24 | PM.DS ---
DS: Admitting Diagnosis Discharge Date 10/03/23 Admitting Diagnosis chills, N/V DS: Discharge Diagnosis Discharge Diagnosis (1) Kidney abscess: Code(s): N15.1 - Renal and perinephric abscess Status: Ruled-out Assessment and Plan: US of kidney normal kidneys. No abscess identified. urine cultures negative BC showing gram negative bacilli in prelim growth and E. coli. (2) Bacteremia: Code(s): R78.81 - Bacteremia Status: Acute Assessment and Plan: urine cultures negative, possible pyelonephritis source BC positive for E. coli. D/C on Augmentin PO Q8 to finish 7 day course DS: Summary Hospital Course Hospital Course: Patient is a 33-year-old female with no PMH admitted for 3-4 days of chills, fevers, nausea, vomiting/ poor appetite. CXR showed no acute process. CTA showed Mild esophagitis/gastritis. 12 mm right lower pole renal lesion with surrounding hypoenhancement may reflect small/early renal abscess or renal antibioma if there is a history of current or recent antibiotic treatment for pyonephritis. Renal US showed no abscess. UA culture was negative. BC positive for E.coli, likely secondary to possible pyelonephritis resolving from AB treatment if received previously. Labs otherwise remained stable, no WBC elevation or JUAN JOSE present. Patient in no acute distress on exam, denies CVA tenderness. Diarrhea has improved, she is eating an drinking well. Discussed plan of care with global supply chain vice president assistance. Patient is stable for d/c home today to finish PO course of Augmentin and to f/u with her PCP. Status at Discharge Functional status at discharge: independent ambulation Overall status at discharge: patient is back to baseline Time Spent with Patient Time attestation: Total time spent providing and/or coordinating discharge services: Exam Narrative: Constitutional: Alert and oriented x4, female pt sitting up in bed at this time in no acute distress. HEENT: Normocephalic and atraumatic. Eyes: PERRLA, EOMI Neck: Supple Respiratory: Lungs clear to ausculation Cardio: RRR GI: Soft, non-tender to palpation, BS present. Denies CVA tenderness Skin: Clear, without lesion, rash or abnormality. Neuro: A&Ox4, no deficits. Extremity: ROM WNL, no edema. Psych: Normal affect and cooperative. DS: Data Data Completed and Pending Labs on day of discharge: Labs from last 24 hours 10/03/23 10:07 WBC 6.2 RBC 4.10 L Hgb 12.4 Hct 37.3 MCV 91.0 MCH 30.2 MCHC 33.2 RDW 13.2 Plt Count 279 MPV 10.1 Sodium 140 Potassium 3.9 Chloride 108 H Carbon Dioxide 22 Anion Gap 10 BUN 8 Creatinine 0.70 Estim Creat Clear Calc 84 Estimated GFR > 60 Glucose 98 Calcium 9.3 Discharge Plan Discharge Attending physician on discharge: Magnus Colvin Consulting providers: Valdez So Discharging Clinician: Zita Wasserman Anticipated Discharge Date/Time: 10/03/23 08:05 Patient Disposition: Home, Self-Care Activity: as tolerated Diet: regular Discharge Instructions: Finish your course of antibiotics even if you are feeling better. You will take your next dose this evening. Take with food to prevent an upset stomach. Follow up if you develop worsening abdominal or lower back pain, blood in your urine, fevers, or chills. Patient Instructions: Antibiotic Form, Bacteremia (DC) Patient Language: Salvadorean Stand Alone Forms: General Discharge Information, Work/School Release IP Follow-up/Referrals: Valdez So MD [Physician] - Discharge Medications: New amoxicillin-pot clavulanate 875-125 mg tablet 1 tablet PO Q8H Qty: 10 0RF Continued naproxen 250 mg Tablet 750 mg PO BID PRN (Reason: Pain) Date of admission: 09/29/23 21:27 Primary Care Provider: PHYSICIAN,FRONT OFFICE MANAGER Admitting Provider: Sarah Stone V. Attending physician on admission: Patti Smith Condition: Stable Quality VTE Pr
== END 2023-10-03 11:35 | disposition home or self-care (01) | DRG 872 ==
LOC: ANHED 17:49 → ANH3MEDSUR 09-30 03:36
PROVIDERS: Nurse Practitioner; Admitting Provider Internal Medicine; Emergency Provider Physician Assistant; Visit Provider Nurse Practitioner Adult Health
DX: R78.81 Bacteremia (principal); N12 Tubulo-interstitial nephritis, not specified as acute or chronic; B96.20 Unspecified Escherichia coli [E. coli] as the cause of diseases classified elsewhere; Z20.822 Contact with and (suspected) exposure to COVID-19; K29.70 Gastritis, unspecified, without bleeding; K20.90 Esophagitis, unspecified without bleeding
CPT/HCPCS: 36415; 71045; 74177; 76775; 80048; 80076; 81001; 81025; 83605; 83690; 85025; 85027; 86140; 87040; 87086; 87186; 87637; 93005; 96361; 96365; 96375; 99285; A9270; J0696; J1200; J1885; J2185; J2270; J2405; J7030; Q9967